=== PATIENT | male | born 1940 | race Two or more races ===

== ENCOUNTER 2017-08-08 17:35 | Emergency (ER) | payer MEDICARE, MEDICAID ==
[~2017-08-08] VITALS: Ht 160 cm; Wt 74.8 kg
[2017-08-08] MEDS ORDERED: HYDROcodone-ACET 10/325MG TAB PO ONE (22:00)
[2017-08-08 22:10] LABS: Urine Bilirubin Negative (Negative); Urine Blood Negative /uL (Negative); Urine Color Yellow (Yellow); Urine Glucose 3+ mg/dL (Normal); Urine Ketone Negative (Negative); Urine Mucus FEW (None Seen); Urine Nitrite Negative (Negative); Urine RBC 1 /hpf (0 - 3); Urine Squamous Epithelial Cell FEW /hpf (<5); Urine Urobilinogen Normal (Negative); Urine pH 5.5 (5.0-8.0)
[2017-08-08 23:15] VITALS: BP 153/79
== END 2017-08-09 00:08 | disposition home or self-care (01) ==
LOC: ER 17:37
DX: S22.31XA Fracture of one rib, right side, initial encounter for closed fracture (principal); R07.89 Other chest pain; E11.9 Type 2 diabetes mellitus without complications; I10 Essential (primary) hypertension; W18.39XA Other fall on same level, initial encounter; Y93.89 Activity, other specified; Y92.89 Other specified places as the place of occurrence of the external cause; Y99.8 Other external cause status
CPT/HCPCS: 71101; 81001

== ENCOUNTER 2017-08-21 10:29 | Emergency (ER) | payer MEDICARE, MEDICAID ==
[~2017-08-21] VITALS: Ht 172.7 cm; Wt 77.1 kg
[2017-08-21 11:33] LABS: Basophils # (auto) 0 uL; Basophils % (auto) 0.6 % (0.0-2.0); Eosinophils # (auto) 0.1 uL; Eosinophils % (auto) 2.4 % (0.0-7.0); Hematocrit 42.8 % (41.0-53.0); Hemoglobin 14.7 g/dL (13.5-17.5); Lymphocytes % (auto) 23.3 % (10.0-50.0); Mean Corpuscular Hemoglobin 30.7 pg (28.0-32.0); Mean Corpuscular Hgb Conc. 34.4 g/dL (32.0-36.0); Mean Corpuscular Volume 89.2 fL (80.0-100.0); Monocytes # (auto) 0.4 uL; Monocytes % (auto) 8.8 % (0.0-12.0); Neutrophils # (auto) 2.7 uL; Neutrophils % (auto) 64.9 % (37.0-80.0); Platelet Count (auto) 179 10^3/uL (140-450); Red Cell Distribution Width 13.9 % (11.8-14.3); White Blood Cell 4.1 10^3/uL (4.4-10.8)
[2017-08-21 12:14] LABS: Albumin 3.7 g/dL (3.4-5.0); Alkaline Phosphatase 76 U/L (45-117); Anion Gap 7 (5-15); Aspartate Aminotransferase 28 U/L (15-37); BUN/Creatinine Ratio 11.6; Bilirubin, Total 0.6 mg/dL (0.2-1.0); Blood Urea Nitrogen 11 mg/dL (7-18); Calcium 8.6 mg/dL (8.5-10.1); Carbon Dioxide 27 mmol/L (21-32); Chloride 104 mmol/L (98-107); GFR African American 99 mL/min; GFR Non-African American 82 mL/min; Glucose 159 mg/dL (74-106); Magnesium 2.2 mg/dL (1.6-2.6); Potassium 3.7 mmol/L (3.5-5.1); Sodium 138 mmol/L (136-145); Total Protein 7.5 g/dL (6.4-8.2)
[2017-08-21 16:13] VITALS: BP 164/95
== END 2017-08-21 18:53 | disposition home or self-care (01) ==
LOC: ER 10:29
DX: S22.31XA Fracture of one rib, right side, initial encounter for closed fracture (principal); K40.90 Unilateral inguinal hernia, without obstruction or gangrene, not specified as recurrent; E11.9 Type 2 diabetes mellitus without complications; I10 Essential (primary) hypertension; W05.0XXA Fall from non-moving wheelchair, initial encounter; Y93.89 Activity, other specified; Y99.8 Other external cause status; Y92.099 Unspecified place in other non-institutional residence as the place of occurrence of the external cause
CPT/HCPCS: 36415; 71101; 74176; 80053; 83735; 84484; 85025; 93005

== ENCOUNTER 2018-08-04 12:05 | Inpatient (IN) | payer MEDICARE, MEDICAID ==
[~2018-08-04] VITALS: Ht 165.1 cm; Wt 62.0 kg
[2018-08-04] MEDS ORDERED: SODIUM CHLORIDE 0.9% 500 ML IV ONE ×2 (12:13→12:15)
[2018-08-04 13:18] LABS: Basophils # (auto) 0 uL; Basophils % (auto) 0.1 % (0.0-2.0); Eosinophils # (auto) 0 uL; Hematocrit 46.3 % (41.0-53.0); Hemoglobin 15.7 g/dL (13.5-17.5); Lymphocytes # (auto) 0.3 uL; Lymphocytes % (auto) 2.9 % (10.0-50.0); Mean Corpuscular Hemoglobin 30.5 pg (28.0-32.0); Mean Corpuscular Hgb Conc. 33.8 g/dL (32.0-36.0); Mean Corpuscular Volume 90.2 fL (80.0-100.0); Monocytes # (auto) 0.7 uL; Monocytes % (auto) 6.1 % (0.0-12.0); Neutrophils # (auto) 10.2 uL; Neutrophils % (auto) 90.9 % (37.0-80.0); Platelet Count (auto) 156 10^3/uL (140-450); Red Blood Cells 5.14 10^6/uL (4.5-5.90); Red Cell Distribution Width 13.8 % (11.8-14.3); White Blood Cell 11.2 10^3/uL (4.4-10.8)
[2018-08-04 13:36] LABS: INR 1.06 (0.9-1.15); Partial Thromboplastin Time 26.2 sec (23.78-33.04); Prothrombin Time 11.3 sec (9.27-12.13)
[2018-08-04 13:50] LABS: Urine Bacteria FEW /hpf (None Seen); Urine Blood TRACE /uL (Negative); Urine Specific Gravity 1.009 (1.001-1.035); Urine WBC 9 /hpf (0 - 3)
[2018-08-04 13:55] LABS: Albumin 3.8 g/dL (3.4-5.0); Bilirubin, Total 0.9 mg/dL (0.2-1.0); Calcium 8.9 mg/dL (8.5-10.1); Lactic Acid w/Reflex 6.1 mmol/L (0.4-2.0); Potassium 3.5 mmol/L (3.5-5.1); Total Protein 7.9 g/dL (6.4-8.2)
[2018-08-04] MEDS ORDERED: ACETAMINOPHEN 500 MG TAB PO ONE (14:15)
[2018-08-04] MEDS ORDERED: ONDANSETRON HCL 4 MG/2 ML VIAL IV PRN (14:15)
[2018-08-04] MEDS ORDERED: HYDROcodone-ACET 5/325MG TAB PO PRN (14:15)
[2018-08-04] MEDS ORDERED: NITROGLYCERIN 0.4 MG SL TAB SL PRN (14:15)
[2018-08-04] MEDS ORDERED: MORPHINE SULF INJ 2 MG/ML SYRINGE 1ML IV PRN (14:15)
[2018-08-04] MEDS ORDERED: ACETAMINOPHEN 500 MG TAB PO PRN (14:15)
[2018-08-04] MEDS ORDERED: DEXTROSE (50%) 50ML SYRG IV PRN (14:15)
[2018-08-04] MEDS: SODIUM CHLORIDE 0.9% 1,000 ML IV SCH (15:58)
[2018-08-04] MEDS: PIPERACILLIN-TAZOB 3.375GM 100 ML IV SCH ×2 (15:58→23:03)
[2018-08-04] MEDS: TAMSULOSIN HYDROCHLORIDE 0.4 MG CAP PO SCH (18:05)
[2018-08-04] MEDS: ACCU-CHEK COMFORT CURVE STRIP VI SCH (18:13)
[2018-08-04] MEDS: InsuLIN REG 1unit/0.01ml Soln (100units/ml) SC SCH (18:13)
[2018-08-04 20:00] VITALS: BP 133/69
[2018-08-04 22:00] VITALS: BP 133/69
[2018-08-05] MEDS: ACCU-CHEK COMFORT CURVE STRIP VI SCH ×5 (00:05→23:19)
[2018-08-05] MEDS: SODIUM CHLORIDE 0.9% 1,000 ML IV SCH ×2 (00:44→11:55)
[2018-08-05] MEDS ORDERED: METF-370 PO (01:10)
[2018-08-05] MEDS ORDERED: LOSA-49 PO (01:10)
[2018-08-05] MEDS ORDERED: PRAV20TA3 PO (01:10)
[2018-08-05] MEDS ORDERED: MULTTAB PO (01:10)
[2018-08-05] MEDS ORDERED: CALC-337 PO (01:10)
[2018-08-05 04:53] VITALS: BP 123/80
[2018-08-05] MEDS: InsuLIN REG 1unit/0.01ml Soln (100units/ml) SC SCH ×5 (05:55→23:20)
[2018-08-05 06:01] LABS: Basophils # (auto) 0 uL; Basophils % (auto) 0.2 % (0.0-2.0); Eosinophils # (auto) 0 uL; Hematocrit 42.2 % (41.0-53.0); Hemoglobin 14.5 g/dL (13.5-17.5); Lymphocytes # (auto) 0.6 uL; Lymphocytes % (auto) 8.2 % (10.0-50.0); Mean Corpuscular Hemoglobin 30.8 pg (28.0-32.0); Mean Corpuscular Hgb Conc. 34.5 g/dL (32.0-36.0); Mean Corpuscular Volume 89.5 fL (80.0-100.0); Monocytes # (auto) 0.5 uL; Monocytes % (auto) 6.5 % (0.0-12.0); Neutrophils # (auto) 6.2 uL; Neutrophils % (auto) 85.1 % (37.0-80.0); Nucleated Red Blood Cells % 0.1 %; Platelet Count (auto) 136 10^3/uL (140-450); Red Blood Cells 4.71 10^6/uL (4.5-5.90); Red Cell Distribution Width 13.7 % (11.8-14.3); White Blood Cell 7.3 10^3/uL (4.4-10.8)
[2018-08-05 06:26] LABS: BUN/Creatinine Ratio 10.3; Calcium 8.1 mg/dL (8.5-10.1); Potassium 3.2 mmol/L (3.5-5.1)
[2018-08-05] MEDS: PIPERACILLIN-TAZOB 3.375GM 100 ML IV SCH ×3 (06:48→23:12)
[2018-08-05 08:04] VITALS: BP 152/82
[2018-08-05] MEDS ORDERED: POTASSIUM CHL 20 Meq TABLET PO ONE (11:30)
[2018-08-05 12:30] VITALS: BP 142/85
[2018-08-05 17:16] VITALS: BP 144/99
[2018-08-05] MEDS: TAMSULOSIN HYDROCHLORIDE 0.4 MG CAP PO SCH (18:09)
[2018-08-05 20:00] VITALS: BP 151/97
[2018-08-05 22:00] VITALS: BP 140/80
[2018-08-06] MEDS: SODIUM CHLORIDE 0.9% 1,000 ML IV SCH ×2 (00:50→14:16)
[2018-08-06 05:23] VITALS: BP 143/88
[2018-08-06] MEDS: ACCU-CHEK COMFORT CURVE STRIP VI SCH ×4 (05:58→23:30)
[2018-08-06] MEDS: InsuLIN REG 1unit/0.01ml Soln (100units/ml) SC SCH ×4 (05:59→23:30)
[2018-08-06] MEDS: PIPERACILLIN-TAZOB 3.375GM 100 ML IV SCH (06:54)
[2018-08-06 09:00] VITALS: BP 148/80
[2018-08-06 10:50] LABS: Basophils # (auto) 0 uL; Basophils % (auto) 0.4 % (0.0-2.0); Eosinophils # (auto) 0 uL; Eosinophils % (auto) 0.8 % (0.0-7.0); Hematocrit 42.6 % (41.0-53.0); Hemoglobin 14.5 g/dL (13.5-17.5); Lymphocytes # (auto) 0.8 uL; Lymphocytes % (auto) 21.8 % (10.0-50.0); Mean Corpuscular Hemoglobin 30.7 pg (28.0-32.0); Mean Corpuscular Hgb Conc. 34.1 g/dL (32.0-36.0); Mean Corpuscular Volume 90.1 fL (80.0-100.0); Monocytes # (auto) 0.6 uL; Monocytes % (auto) 15.5 % (0.0-12.0); Neutrophils # (auto) 2.4 uL; Neutrophils % (auto) 61.5 % (37.0-80.0); Nucleated Red Blood Cells % 0.1 %; Platelet Count (auto) 127 10^3/uL (140-450); Red Blood Cells 4.73 10^6/uL (4.5-5.90); Red Cell Distribution Width 14.1 % (11.8-14.3); White Blood Cell 3.9 10^3/uL (4.4-10.8)
[2018-08-06 11:05] LABS: BUN/Creatinine Ratio 11.2; Calcium 7.8 mg/dL (8.5-10.1); Potassium 3.6 mmol/L (3.5-5.1)
[2018-08-06 17:15] VITALS: BP 142/81
[2018-08-06] MEDS: TAMSULOSIN HYDROCHLORIDE 0.4 MG CAP PO SCH (17:45)
[2018-08-06 22:00] VITALS: BP 180/91
[2018-08-07] MEDS: SODIUM CHLORIDE 0.9% 1,000 ML IV SCH (03:30)
[2018-08-07 05:00] VITALS: BP 140/98
[2018-08-07] MEDS: ACCU-CHEK COMFORT CURVE STRIP VI SCH (05:46)
[2018-08-07] MEDS: InsuLIN REG 1unit/0.01ml Soln (100units/ml) SC SCH (05:46)
[2018-08-07 08:00] VITALS: BP 157/57
[2018-08-07 08:47] VITALS: BP 157/95
[2018-08-07] MEDS ORDERED: LEVOFLOXACIN 500MG 100 ML IV SCH (10:00)
[2018-08-07 13:00] VITALS: BP 146/97
[2018-08-07 13:11] VITALS: BP 157/95
== END 2018-08-07 15:55 | disposition home or self-care (01) | DRG 871 ==
LOC: ER 12:05 → EDBD 12:05 → TELE 12:06 → TELE-WESTW 19:44 → WEST WING 08-05 18:48
PROVIDERS: ADMIT Internal Medicine; ATTEND Internal Medicine
DX: A41.9 Sepsis, unspecified organism (principal); N17.0 Acute kidney failure with tubular necrosis; N39.0 Urinary tract infection, site not specified; E11.9 Type 2 diabetes mellitus without complications; F41.9 Anxiety disorder, unspecified; I10 Essential (primary) hypertension; N40.0 Benign prostatic hyperplasia without lower urinary tract symptoms; W19.XXXA Unspecified fall, initial encounter; W18.39XA Other fall on same level, initial encounter; Y93.89 Activity, other specified; Y99.8 Other external cause status; Y92.002 Bathroom of unspecified non-institutional (private) residence as the place of occurrence of the external cause
CPT/HCPCS: 36415; 71045; 76775; 80048; 80053; 81001; 82962; 83036; 83605; 83880; 85025; 85610; 85730; 87040; 87086; 87088; 87186; 93005; 96361; 96365; 97110; 97116; 97530; 99291; J1815; J1956; J2543